=== PATIENT | male | born 1975 | race Asian ===

== ENCOUNTER 2018-06-30 19:54 | Emergency (ER) | payer MEDICAID ==
[2018-06-30 23:46] VITALS: BP 107/89
== END 2018-06-30 22:46 | disposition home or self-care (01) ==
LOC: ED 19:54
DX: R05 Cough (principal); R09.81 Nasal congestion; I10 Essential (primary) hypertension; E11.9 Type 2 diabetes mellitus without complications

== ENCOUNTER 2020-01-11 05:51 | Emergency (ER) | payer MEDICAID ==
[~2020-01-11] VITALS: Ht 165.1 cm; Wt 97.5 kg
[2020-01-11 06:09] VITALS: Ht 165.1 cm; Wt 97.5 kg
[2020-01-11 08:39] VITALS: BP 165/121
== END 2020-01-11 08:39 | disposition home or self-care (01) ==
LOC: ED 05:51
DX: N32.89 Other specified disorders of bladder (principal); I10 Essential (primary) hypertension; E11.9 Type 2 diabetes mellitus without complications

== ENCOUNTER 2020-03-16 17:00 | Emergency (ER) | payer MEDICAID, SELFPAY ==
[~2020-03-16] VITALS: Ht 157.5 cm; Wt 95.7 kg
[2020-03-16 17:02] VITALS: Ht 157.5 cm; Wt 95.7 kg
[2020-03-16 18:03] VITALS: BP 149/104
== END 2020-03-16 18:03 | disposition home or self-care (01) ==
LOC: ED 17:00
DX: R50.9 Fever, unspecified (principal); M79.10 Myalgia, unspecified site; I10 Essential (primary) hypertension; E11.9 Type 2 diabetes mellitus without complications; E78.00 Pure hypercholesterolemia, unspecified; Z20.828 Contact with and (suspected) exposure to other viral communicable diseases
CPT/HCPCS: U0003-CS

== ENCOUNTER 2020-06-08 16:28 | Emergency (ER) | payer MEDICAID, SELFPAY ==
[~2020-06-08] VITALS: Ht 157.5 cm; Wt 90.7 kg
[2020-06-08 16:31] VITALS: Ht 157.5 cm; Wt 90.7 kg
[2020-06-08 17:51] VITALS: BP 129/89
== END 2020-06-08 18:20 | disposition home or self-care (01) ==
LOC: ED 16:28
DX: U07.1 COVID-19 (principal); L50.9 Urticaria, unspecified; I10 Essential (primary) hypertension; E11.9 Type 2 diabetes mellitus without complications; E78.00 Pure hypercholesterolemia, unspecified
CPT/HCPCS: J1100; J1200